=== PATIENT | male | born 1995 | race African-American/Black ===

== ENCOUNTER 2022-07-11 21:52 | Emergency (ER) | payer OTHER ==
[2022-07-11] MEDS: OLANZapine INTRAMUSCULAR 10MG VIAL IM ONE ×2 (22:15→22:44)
[2022-07-11 22:43] LABS: HEMATOCRIT 43.1 % (42.0-52.0); HEMOGLOBIN 13.8 g/dl (13.5-17.5); MEAN CORPUSCULAR VOLUME 71.8 fl (80.0-96.0); PLATELET COUNT, AUTOMATED 335 10^3/uL (150-450); WHITE BLOOD COUNT 7.8 10^3/uL (4.0-10.0)
[2022-07-11 23:07] LABS: ACETAMINOPHEN LEVEL < 2.0 UG/ML (10.0-20.0)
[2022-07-11 23:08] LABS: ALBUMIN 4.2 G/DL (3.2-5.2); ALKALINE PHOSPHATASE 78 U/L (46-116); ALT/SGPT 26 U/L (7.0-40); AST/SGOT 39 U/L (<34); BILIRUBIN,DIRECT 0.1 MG/DL (<0.4); BILIRUBIN,TOTAL 0.3 MG/DL (0.3-1.2); BLOOD UREA NITROGEN 10 MG/DL (9-23); CALCIUM LEVEL 8.8 MG/DL (8.5-10.1); CARBON DIOXIDE LEVEL 24 MMOL/L (20-31); CHLORIDE LEVEL 107 MMOL/L (98-107); CREATININE FOR GFR 1.36 MG/DL (0.70-1.30); GLOMERULAR FILTRATION RATE > 60.0 (>60); GLUCOSE, FASTING 100 MG/DL (60-100); POTASSIUM SERUM 4.3 MMOL/L (3.5-5.1); SALICYLATE LEVEL < 3.0 MG/DL (<30); SODIUM LEVEL 143 MMOL/L (136-145); TOTAL PROTEIN 7.6 G/DL (5.7-8.2)
[2022-07-11 23:11] LABS: THYROID STIMULATING HORMONE 0.591 uIU/ML (0.55-4.78)
[2022-07-11 23:29] LABS: BARBITURATES URINE NEGATIVE (NEGATIVE); COCAINE METABOLITE URINE NEGATIVE (NEGATIVE); METHADONE URINE NEGATIVE (NEGATIVE); OPIATES URINE NEGATIVE (NEGATIVE); PHENCYCLIDINE URINE NEGATIVE (NEGATIVE)
[2022-07-11 23:30] LABS: ETHYL ALCOHOL (ETHANOL) 0.292 % (0.000-0.010)
[2022-07-11 23:30] LABS: AMPHETAMINES LEVEL URINE NEGATIVE (NEGATIVE); BENZODIAZEPINES URINE NEGATIVE (NEGATIVE); CANNABINOIDS URINE NEGATIVE (NEGATIVE)
[2022-07-12 13:04] VITALS: BP 121/74
== END 2022-07-12 13:05 | disposition home or self-care (01) ==
LOC: M ED 21:52
DX: F10.129 Alcohol abuse with intoxication, unspecified (principal)